=== PATIENT | female | born 1965 | race Caucasian/White ===

== ENCOUNTER 2019-10-22 09:50 | Observation (INO) | payer OTHER, SELFPAY ==
[2019-10-22] VITALS (16 sets, daily range): BP systolic 143–213; BP diastolic 72–138; PULSE 50–74; RESP 14–25; TEMP 36.1–36.7; O2SAT 97–99; BMI 39.6
--- NOTE | ~2019-10-22 | CT_ITS ---
EXAMINATION: CT brain wo con DATE: 10/23/2019 16:24 INDICATION: Seizure. History of metastatic breast cancer, craniotomy TECHNIQUE: Computed tomography (CT) of the head was performed without intravenous contrast. The mA wa s adjusted according to patient size. Iterative reconstruction technique was employed. Exam dose: 60 5.33 mGy-cm total exam DLP. COMPARISON: None FINDINGS: There is a focal area of diminished attenuation in the posteromedial right occipital lobe. A smaller focus of diminished attenuation is noted in each of the occipital lobes. There is a focal area of encephalomalacia subjacent to a craniotomy with bone flap secured by plates and screws in the posterior right parietal area. There is a focal area of encephalomalacia high over the right parietal convexity subjacent to another area of craniotomy with bone flap secured by plate and screws. There is a history of metastatic breast cancer and craniotomy. These focal areas of diminished attenuation may represent areas of past metastatic disease or cerebro vascular infarction; current brain metastatic disease is not confidently excluded without benefit of CT examination with IV contrast or MRI examination with gadolinium. No midline shift or mass effect is evident. No intracranial hemorrhage is identified. There is diminished attenuation of the cerebral white matter, which may be due to chronic small vesse l ischemic changes. Or possibly postoperative radiation change if applicable No subdural or epidural hematoma. No orbital mass lesion Included paranasal sinuses and mastoid air cells are well aerated. No skull fracture or bone destruction is evident. IMPRESSION: 2 right-sided bone flaps due to prior craniotomies, with subjacent encephalomalacia like ly related to surgical excision of reported metastatic disease Occasional areas of diminished attenuation at the craniotomy sites and in the right occipital lobe; m etastatic disease is not confidently excluded on this limited noncontrast examination. Consider repea t CT brain examination with intravenous contrast material or MRI brain examination with gadolinium. Nonspecific diminished attenuation of cerebral white matter, possibly secondary to small vessel ische roxi changes or postradiation change Reviewed, dictated and finalized at [facility]. Reviewed, dictated and finalized at location [facility]. IMPRESSION: 2 right-sided bone flaps due to prior craniotomies, with subjacent encephalomalacia likely related to surgical excision of reported metastatic di sease Occasional areas of diminished attenuation at the craniotomy sites and in the r ight occipital lobe; metastatic disease is not confidently excluded on this marion ited noncontrast examination. Consider repeat CT brain examination with intrave nous contrast material or MRI brain examination with gadolinium. Nonspecific diminished attenuation of cerebral white matter, possibly secondary to small vessel ischemic changes or postradiation change
--- NOTE | ~2019-10-22 | CT_ITS ---
EXAMINATION: CT abdomen pelvis w con DATE: 10/22/2019 10:56 INDICATION: Abdominal pain. Breast cancer with metastases. TECHNIQUE: Computed tomography (CT) of the abdomen and pelvis was performed with 100 mL Omnipaque-350 intravenous contrast. Automated exposure control and iterative reconstruction technique were employe d. The dose-length product was 1166.59 mGy-cm. COMPARISON: 07/23/2016 FINDINGS: Partially visualized is a inferior most aspect of a likely ruptured left breast implant. 5.4 x 5.3 cm mass in the left lower lobe. A couple surgical clips at the base of the left lower lobe which may be related to prior pulmonary wedge resection given suggestion of volume loss with mild elevation of le ft hemidiaphragm. Small left pleural effusion. The majority the prior pulmonary nodules have resolved or significantly decreased in size with a couple <4 mm nodules in the right lower lobe. Heart size i s normal. No pericardial effusion. Wall thickening in the distal esophagus which could be related to esophagitis. Focal hepatic steatosis at the ligamentum teres. Multiple gallstones within the otherwis e normal-appearing gallbladder with no evident wall thickening or pericholecystic inflammatory change to suggest acute cholecystitis. 3 mm hyperintense focus at the tail of the pancreas, unclear whether dystrophic calcification related to prior pancreatitis or hyperenhancing neoplasm which could be eit her benign or malignant. Spleen and bilateral adrenal glands are normal. Again seen is a 2 mm nonobst ructing stone at the lower pole of the right kidney. No significant interval change in angiographic r egions of mild cortical scarring at the both kidneys. Normal appendix. There are couple diverticula a long the sigmoid colon without adjacent inflammatory change to suggest diverticulitis. No abnormal apolonia wel wall thickening or obstruction. Bladder, anteverted uterus and bilateral adnexa are unremarkable. No free intraperitoneal gas or fluid. No pathologically enlarged abdominal or pelvic lymphadenopathy . There is calcified atherosclerosis of the aorta and bilateral iliac arteries. Rectus diastases. Mil d lumbar dextrocurvature. Mild to moderate degenerative skeletal changes in the spine and bilateral h ip and sacroiliac joints. IMPRESSION: 1. Normal appendix. No acute intra-abdominal/pelvic process. 2. Cholelithiasis. 3. 2 mm nonobstructing right renal stone. 4. 5.4 cm mass in the left lower lobe concerning for recurrent metastatic disease with small left ple ural effusion. Reviewed, dictated and finalized at location [facility]. IMPRESSION: 1. Normal appendix. No acute intra-abdominal/pelvic process. 2. Cholelithiasis. 3. 2 mm nonobstructing right renal stone. 4. 5.4 cm mass in the left lower lobe concerning for recurrent metastatic disea se with small left pleural effusion.
--- NOTE | ~2019-10-22 | MR_ITS ---
EXAMINATION: MR brain/brain stem wo/w con EXAM DATE: 10/24/2019 12:31 INDICATION: Seizure, possible brain metastatic disease on CT. TECHNIQUE: Magnetic resonance imaging (MRI) of the brain/brain stem obtained without contrast. Sagit fabiana T1, axial diffusion, gradient echo (T2*), T1, T2, FLAIR sequences obtained. Patient was then inj ected with 20 cc intravenous Multihance contrast. Axial and coronal postcontrast T1 weighted sequence s obtained. Correlation is made to head CT 10/23/2019. FINDINGS: There are surgical changes from right parieto-occipital craniotomy. There are 2 regions of encephalomalacia underlying craniotomy defects, right parietal and occipital lobes. These correlate t o the CT abnormality. There are no areas of restricted diffusion to suggest acute infarction. There is no acute hemorrhage seen on the T2*, a hemosiderin sensitive sequence. No intraparenchymal brain mass lesion. There ar e no areas of abnormal enhancement on the post contrast images. There is rather extensive bilateral white matter signal T2 hyperintensity, could be from global brain radiation or less likely microangi opathy. Correlate with history. There is prominence of the sulci and ventricles related to cerebral atrophy. There are no extra-axial collections. Flow voids are seen in the cerebral arteries on the T2-weighted sequences consistent with their expected patency. The orbits are unremarkable. Soft ti ssue is unremarkable. IMPRESSION: 1. No evidence of intracranial metastatic disease. 2. White matter hyperintensity most consistent with brain radiation treatment. 3. Surgical changes. Reviewed, dictated and finalized at location [facility].
--- NOTE | ~2019-10-22 | XR_ITS ---
EXAMINATION: XR chest 1V portable EXAM DATE: 10/22/2019 10:40 INDICATION: Karla catheter. TECHNIQUE: Portable AP frontal chest x-ray was obtained. Comparison is made to prior examination from 10/23/2008. FINDINGS: There is a right-sided portacatheter with intact line. There is segmental left lower lobe c onsolidation, could be pneumonia or atelectasis. Please correlate with the CT scan which has been ord ered but not performed. Mild cardiomegaly and pulmonary vascular congestion. Probable small pleural e ffusions. No pneumothorax. There are mild bony degenerative changes. IMPRESSION: 1. Left lower lobe segmental consolidation. Reviewed, dictated and finalized at location [facility].
--- NOTE | 2019-10-22 09:59 | ECG_ITS ---
Measurements Intervals Lyle Rate: 52 P: 45 MT: 140 QRS: 20 QRSD: 113 T: -1 QT: 485 QTc: 455 Interpretive Statements SINUS BRADYCARDIA INTRAVENTRICULAR CONDUCTION DELAY VOLTAGE CRITERIA FOR LVH LATERAL INFARCT, AGE INDETERMINATE BORDERLINE ST-T WAVE ABNORMALITY- ANTEROLAT/INF LEADS ABNORMAL ECG Electronically Signed On 10-22-2019 13:48:48 CDT by Corbin Mata D.O.
--- NOTE | 2019-10-22 10:11 | ED.ABDPAIN ---
HPI - Abdominal Pain General Chief Complaint: Abdominal Pain Stated Complaint: ABD PAIN/VOMITING Time Seen by Provider: 10/22/19 10:05 Source: patient Mode of arrival: ambulatory Limitations: no limitations History of Present Illness HPI narrative: A 54 y/o female pt presents to the ED, with c/o diffuse ABD pain that radiates to her back and N/V x 1 day. Pt states her ABD pain is worsening and notes emesis x 10 yesterday, and some loose stools, but denies N/V/D today. She denies having any similar pain to this in the past and denies having any hx of ABD surgeries. Pt denies fever, chills, ROSAS, CP or SOB. Pt notes a PMHx of stage 4 triple negative breast CA x 15 years with metastasis to the lung, brain, lymph nodes, chest and bones. She notes that she was supposed to resume her chemotherapy today, but was unable to d/t her condition today. Pt states that she has an appointment with her oncologist Dr. Parrish at [facility] next week. Her PCP is Dr. Stacey Stout. She notes allergies to Mucinex, Sulfa drugs, and Opioids. MD elicited complaint: abdominal pain Pertinent past history: other (CA) Onset (ago): day(s) (1) Pain Consistency: other (worsening) Location: diffuse Radiation: back Associated symptoms: nausea, vomiting and other (loose stools, diffuse ABD pain) Related Data Allergies Allergy/AdvReac Type Severity Reaction Status Date / Time butorphanol Allergy Severe DIAPHRAMATIC Verified 07/23/16 17:41 SPASM codeine Allergy Severe ITCHING, Verified 07/23/16 17:41 NAUSEA AND VOMITING, SOB ibuprofen Allergy Severe BLOOD IN Verified 07/23/16 17:41 STOOL morphine Allergy Severe RESPIRATORY Verified 07/23/16 17:41 DISTRESS,ITCHEY meperidine Allergy Intermediate COMBATIVE Verified 07/23/16 17:41 Sulfa (Sulfonamide Allergy Mild MUSCLE PAIN Verified 07/23/16 17:41 Antibiotics) alcohol Allergy Unknown MUSCLE PAIN Verified 07/23/16 17:41 aspirin Allergy Unknown PARENTS Verified 07/23/16 17:41 TOLD NOT TO GIVE CHILD PAPER TAPE Allergy Severe BLISTERS--SEVERE Uncoded 09/25/08 10:39 SKIN REACTION YELLOW CHEESE, SIFUENTES,CLAMS Allergy Severe CHEESE---MUSCLE Uncoded 09/25/08 10:39 BURCIAGA NO ARTIFICIAL SWEETNERS Allergy Unknown Uncoded 07/23/16 17:41 Review of Systems Review of Systems: All systems reviewed & are unremarkable except as noted in HPI and below Constitutional: Constitutional: Denies chills, Denies fever(s) and Denies headache(s) Cardiovascular: Cardiovascular: Denies chest pain Respiratory: Respiratory: Denies dyspnea Gastrointestinal: Gastrointestinal: Reports abdominal pain (diffuse), Denies diarrhea, Reports loose stools, Reports nausea (subsided) and Reports vomiting (x 10 yesterday) Musculoskeletal: Musculoskeletal: Reports back pain (radiating from ABD) [facility] Past Medical History Medical History (Updated 10/22/19 @ 12:14 by Jimenez Ricketts MD) Arthritis Breast cancer, left Bronchitis Hypertension Kidney stones Surgical History Surgical History (Updated 10/22/19 @ 11:50 by [employer]ury [email or web address]) H/O left mastectomy History of section History of dilation and curettage x2 History of left breast biopsy History of tonsillectomy History of uterine suspension procedure Social History Social History (Updated 10/22/19 @ 11:50 by [employer]ury [email or web address]) Smoking status: Smoker, status unknown Gender identity (if verbalized by the patient): Female Exam Narrative: Exam Narrative: General appearance: Well-developed, well-nourished Skin: Normal color Head: Normocephalic, nontraumatic Eyes: Clear conjunctiva ENT: Oropharynx normal, ears normal, nose normal Neck: Supple, nontender Chest and respiratory: Airway patent, no respiratory distress, no accessory muscle use Heart: Regular rate/rhythm Abdomen: Soft, diffuse mild tenderness, no guarding or rebound, hyperactive bowel sounds Vascular: Normal peripheral pulses, normal capillary refill.
[2019-10-22 10:52] LABS: Estimated Glomerular Filt Rate 47
[2019-10-22 10:55] LABS: Basophils Absolute Auto 0.1 K/mm3 (0.0-0.1); Basophils Percent Auto 0.6 % (0.2-1.2); Eosinophils Absolute Auto 0.2 K/mm3 (0-0.3); Eosinophils Percent Auto 2.4 % (0-4.4); Hematocrit 38.9 % (37.0-47.0); Immature Granulocyte Absolute 0.03 K/mm3 (0.00-0.031); Immature Granulocyte Percent A 0.3 % (0-0.5); Lymphocytes Absolute Auto 0.74 K/mm3 (0.9-3.2); Lymphocytes Percent Auto 8.2 % (18.3-44.2); Mean Corpuscular HGB Conc 33.4 g/dl (32-36); Mean Corpuscular Hemoglobin 31.8 pg (26-34); Mean Corpuscular Volume 95.1 fl (80-100); Mean Platelet Volume 10.5 fl (7.4-10.4); Monocytes Absolute Auto 0.6 K/mm3 (0.1-0.6); Monocytes Percent Auto 6.5 % (2.6-8.5); Neutrophils Absolute Auto 7.4 K/mm3 (1.3-6.7); Platelet Count Result 209 k/mm3 (150-375); Red Blood Count 4.09 M/mm3 (4.2-5.4); Red Cell Distribution Width 17.4 % (11.5-14.5)
[2019-10-22 11:05] LABS: Lactic Acid 1.5 mmol/L (0.7-2.1)
[2019-10-22 11:06] LABS: Alanine Aminotransferase 15 U/L (4-35); Albumin Level 3.8 g/dL (3.5-5.1); Alkaline Phosphatase 104 U/L (38-126); Aspartate Amino Transferase 21 U/L (14-36); Bilirubin,Total 0.7 mg/dL (0.2-1.3); Blood Urea Nitrogen 16 mg/dL (7-17); Calcium 9.1 mg/dL (8.4-10.2); Carbon Dioxide 28 mmol/L (22-30); Chloride 103 mmol/L (98-107); Estimated Glomerular Filt Rate 52; Glucose 120 mg/dL (65-105); Lipase 230 U/L (23-300); Potassium 3.9 mmol/L (3.4-5.0); Sodium 137 mmol/L (137-145)
[2019-10-22 11:36] LABS: Add Urine Microscopic? YES; Appearance Urine Clear (Clear); Bilirubin Urine Negative (Negative); Blood Urine Negative (Negative); Color Urine Straw (Yellow); Glucose Urine UA Negative (Negative); Ketones Urine Negative (Negative); Leukocyte Esterase Ur 2+ LEU/UL (Negative); Mucus Urine Rare /lpf; Nitrate Urine Negative (Negative); Protein Urine 1+ mg/dL (Negative); Specific Grav Ur 1.021 (1.001-1.035); Squamous Epithelial Cell Urine Rare /hpf (Few); Transitional Epi Cells Urine Rare /hpf (None Seen); Urobilinogen Urine Negative mg/dL (<2.0); WBC Urine 21-30 /hpf
[2019-10-22] MEDS: SODIUM CHLORIDE 0.9% IV 1,000 ML 999 ML IV CONT (12:10)
[2019-10-22] MEDS: METOCLOPRAMIDE HCL INJ 10 MG/2 ML VIAL IV PUSH (12:11)
[2019-10-22] MEDS: KETOROLAC 30 MG/ML VIAL (*BKC) IV PUSH (12:43)
[2019-10-22] MEDS: levETIRAcetam 1000MG/NACL100ML 1,000 MG/100 ML BAG 400 MG IVPB ×2 (13:04→20:06)
[2019-10-22] MEDS: levETIRAcetam 500MG/NACL 100ML 500 MG/100 ML BAG 400 MG IVPB ×2 (13:08→20:49)
--- NOTE | 2019-10-22 13:40 | ADMGEN ---
This patient, Stacy Domínguez, was admitted to Medical Room 344-01. Patient/family oriented to hospital policies and general routines including ID bracelet, bed and alarms, visiting hours, pain management, procedures, bathroom and other care routines, personal items, smoking policy, room service/diet, and visiting hours. Valuables list has been completed. Information on how to activate the Rapid Response Team has been discussed. Patient/Family are encouraged to report perceived risks to care and to ask questions if they do not understand what they are told or what they should do.
[2019-10-22] MEDS: SODIUM CHLORIDE 0.9% IV 1,000 ML 125 ML IV CONT ×2 (15:01→23:21)
--- NOTE | 2019-10-22 15:12 | PM.IMHP ---
H&P: HPI History of Present Illness Chief complaint: abdominal pain/urinary tract infection/vomiting/br Narrative: Stacy Domínguez is a 54 year old female Who has a history of breast cancer that has metastasized to several areas. The patient typically has chemotherapy 2 weeks and then off a week. She was off a chemo this week due to the ferro virus. It was too risky for her to get chemotherapy at this time. The patient has not had a previous history of any gallstones or kidney stones. The patient has been having diffuse abdominal pain that radiates to her back with nausea and vomiting for 1 day. The patient has had brain tumors in the past and had brain surgery with a history of stroke and seizures. She has not been able to keep down her seizure medicine. The patient stated that she has been vomiting bile. No complaints any chest discomfort. Patient has multiple drug allergies but was able to tolerate Toradol in the emergency room. She does not typically have high blood pressure but it was elevated today due to the pain. Her blood pressure was 183/103 and after the pain medication was 150/86. CT of the abdomen was read by radiology as normal appendix. No acute intra-abdominal / pelvis process. Cholelithiasis. 2 mm nonobstructing right renal stone. 5.4 cm mass in the left lower lobe concerning for recurrent metastatic disease with small left pleural effusion. Patient has symptoms of frequent urination but no burning. Patient was found to have UTI and was started on Rocephin. Blood and urine cultures are pending. Patient was given Reglan IV and IV fluids as well as Benadryl and Ativan in the emergency room. She was also started on IV fluids. Date of service 10/22/2019 Review of Systems Review of Systems: Narrative: the patient denies any fever but complains of having chills. She also has lower back pain. The nausea has pretty much subsided since she was medicated in the emergency room. Patient is typically wheelchair-bound when she is out of the house otherwise she is bed bound because her will to [employer]. All systems reviewed & are unremarkable except as noted in HPI and below Constitutional: Constitutional: Reports as per HPI and Reports no additional constitutional complaints Eyes: Eyes: Reports as per HPI and Reports no additional eye complaints ENT: Reports system reviewed and no additional complaints, except as documented and Reports Normal hearing present Cardiovascular: Cardiovascular: Reports no additional cardiovascular complaints Respiratory: Respiratory: Reports no additional respiratory complaints and Reports no additional respiratory complaints Gastrointestinal: Gastrointestinal: Reports as per HPI and Reports no additional gastrointestinal complaints Musculoskeletal: Musculoskeletal: Reports no additional musculoskeletal complaints Integumentary/Breasts: Skin/Breast: Reports system reviewed and no additional complaints, except as docu and Reports as per HPI Neurologic: Reports system reviewed and no additional complaints, except as documented, Reports as per HPI and Reports Normal hearing present Psychiatric: Psychiatric: Reports no additional psychiatric complaints and Reports as per HPI Endocrine: Endocrine: Reports no additional endocrine complaints Hematologic/Lymphatic: Hematologic/Lymphatic: Reports no additional hematologic/lymphatic complaints Allergic/Immunologic: Allergic/Immunologic: Reports no additional allergic/immunologic complaints [facility] Past Medical History Medical History (Updated 10/22/19 @ 15:23 by Michaelle Iverson NP) Arthritis Brain tumor multiple tumors were removed. Breast cancer, left Typically she has chemotherapy for 2 weeks and then 1 week off her last chemo treatment was last Monday. She was due for chemo this week however her oncologist recommended that she hold off on chemo due to the ferro virus outbreak. Metastasize to multiple areas on her spine lungs and brain B
[2019-10-22] MEDS: PANTOPRAZOLE SODIUM IV 40 MG VIAL IV PUSH (20:00)
[2019-10-22] MEDS: KETOROLAC 15 MG/ML VIAL (*BKC) IV PUSH (20:01)
[2019-10-22] MEDS: ALBUTEROL SULFATE (*SP) AEROSOL 1 PUFF 2 PUFF INHALATION (20:26)
[2019-10-23] VITALS: BP 147/86; PULSE 52; RESP 16; TEMP 36.2; O2SAT 100
[2019-10-23 04:15] VITALS: BP 149/95; PULSE 49; RESP 16; TEMP 36.1; O2SAT 92
[2019-10-23 05:20] LABS: Basophils Percent Auto 0.5 % (0.2-1.2); Eosinophils Absolute Auto 0.3 K/mm3 (0-0.3); Eosinophils Percent Auto 4.7 % (0-4.4); Hematocrit 33.4 % (37.0-47.0); Hemoglobin 11.1 g/dL (12.0-15.0); Immature Granulocyte Absolute 0.01 K/mm3 (0.00-0.031); Immature Granulocyte Percent A 0.2 % (0-0.5); Lymphocytes Absolute Auto 1.01 K/mm3 (0.9-3.2); Mean Corpuscular HGB Conc 33.2 g/dl (32-36); Mean Corpuscular Hemoglobin 31.9 pg (26-34); Mean Platelet Volume 9.8 fl (7.4-10.4); Monocytes Absolute Auto 0.7 K/mm3 (0.1-0.6); Monocytes Percent Auto 11.3 % (2.6-8.5); Neutrophils Absolute Auto 3.9 K/mm3 (1.3-6.7); Neutrophils Percent Auto 66.3 % (45.5-73.1); Platelet Count Result 193 k/mm3 (150-375); Red Blood Count 3.48 M/mm3 (4.2-5.4); Red Cell Distribution Width 17.5 % (11.5-14.5); White Blood Count 5.9 K/mm3 (4.5-10.0)
[2019-10-23 05:47] LABS: Albumin Level 3.1 g/dL (3.5-5.1); Alkaline Phosphatase 79 U/L (38-126); Aspartate Amino Transferase 18 U/L (14-36); Bilirubin,Total 0.5 mg/dL (0.2-1.3); Blood Urea Nitrogen 12 mg/dL (7-17); Calcium 8.3 mg/dL (8.4-10.2); Carbon Dioxide 27 mmol/L (22-30); Estimated CRCL calculation 60 ml/min; Estimated Glomerular Filt Rate 52; Glucose 91 mg/dL (65-105)
[2019-10-23 06:15] LABS: Alanine Aminotransferase 13 U/L (4-35); Chloride 110 mmol/L (98-107); Magnesium 1.9 mg/dL (1.6-2.3); Potassium 3.5 mmol/L (3.4-5.0); Sodium 141 mmol/L (137-145)
[2019-10-23] MEDS: SODIUM CHLORIDE 0.9% IV 1,000 ML 125 ML IV CONT (07:31)
[2019-10-23 07:43] LABS: Free T4 Free Thyroxine Reflex 0.98 ng/dL (0.78-2.19)
[2019-10-23 08:36] LABS: Total Triiodothyronine (T3) 1.21 NG/ML (0.97-1.69)
[2019-10-23] MEDS: ALBUTEROL SULFATE (*SP) AEROSOL 1 PUFF 2 PUFF INHALATION ×2 (09:13→20:27)
[2019-10-23] MEDS: levETIRAcetam 1000MG/NACL100ML 1,000 MG/100 ML BAG 400 MG IVPB ×2 (09:18→20:38)
[2019-10-23] MEDS: PANTOPRAZOLE SODIUM IV 40 MG VIAL IV PUSH ×2 (09:19→20:40)
[2019-10-23 09:35] VITALS: PULSE 72; RESP 16; O2SAT 98
[2019-10-23] MEDS: levETIRAcetam 500MG/NACL 100ML 500 MG/100 ML BAG 400 MG IVPB ×3 (09:47→21:13)
--- NOTE | 2019-10-23 10:13 | PM.IMPN ---
Progress Note: A&P Assessment and Plan (1) Urinary tract infection: Qualifiers: Hematuria presence: without hematuria Urinary tract infection type: site unspecified Qualified Code(s): N39.0 - Urinary tract infection, site not specified <Olga Lidia Genao PA-C - Last Filed: 10/23/19 14:20> Code(s): N39.0 - Urinary tract infection, site not specified <Olga Lidia Genao PA-C - Last Filed: 10/23/19 14:20> Status: Acute <JESSICA Michel-C - Last Filed: 10/23/19 14:20> Assessment and Plan: Patient was having some frequent urination is lung is darkened urine. Denies any dysuria. Urine culture showed leukocyte esterase 2+, wbc's 21- 30. The patient was started on IV ceftriaxone in the emergency room. We are pending urine culture at this time. CT did not offer any evidence of pyelonephritis. Continue monitoring patient's symptoms and administer IV antibiotics until final culture returned. <Olga Lidia Genao PA-C - Last Filed: 10/23/19 14:20> (2) Abdominal pain: Qualifiers: Abdominal location: generalized Qualified Code(s): R10.84 - Generalized abdominal pain <Olga Lidia Genao JONY - Last Filed: 10/23/19 14:20> Code(s): R10.9 - Unspecified abdominal pain <JESSICA Michel-C - Last Filed: 10/23/19 14:20> Status: Acute <Olga Lidia Genao PA-C - Last Filed: 10/23/19 14:20> Assessment and Plan: Patient with diffuse abdominal pain prior to arrival. Now she is just having some epigastric discomfort in intermittent right upper quadrant pain. CT shows no acute abnormality for cause of her discomfort. Her pain was most likely secondary to multiple vomiting episodes and no related to some gastritis and esophagitis from vomiting. Continue with PPI. Continue with IV Toradol p.r.n.. Continue monitoring. <Olga Lidia Sierra JONY Genao - Last Filed: 10/23/19 14:20> (3) Vomiting: Qualifiers: Nausea presence: with nausea Vomiting Intractability: unspecified Vomiting type: unspecified Qualified Code(s): R11.2 - Nausea with vomiting, unspecified <Olga Lidia NavarroYana Genao PA-C - Last Filed: 10/23/19 14:20> Code(s): R11.10 - Vomiting, unspecified <Olga Lidia Rigo Genao PA-C - Last Filed: 10/23/19 14:20> Status: Acute <Olga Lidia Genao PA-C - Last Filed: 10/23/19 14:20> Assessment and Plan: Multiple episodes of nausea and vomiting prior to arrival along with a diffuse abdominal pain. She was found to be slightly dehydrated and started on IV fluids and IV antiemetics, Zofran and Reglan. She is feeling much better at this time with some decreased appetite and intermittent nausea. No more vomiting at this time. Continue monitoring patient's symptoms and give medications as needed. <Olga Lidiatia Genao PA-C - Last Filed: 10/23/19 14:20> (4) Seizure disorder: Code(s): G40.909 - Epilepsy, unspecified, not intractable, without status epilepticus <Olga Lidia Genao PA-C - Last Filed: 10/23/19 14:20> Status: Chronic <Olga Lidia Genao PA-C - Last Filed: 10/23/19 14:20> Assessment and Plan: Patient was unable to keep down her Keppra Orally She is receiving IV Keppra at this time. When she is tolerating her diet better we can switch her back to her oral medications. <Olga Lidia Genao PA-C - Last Filed: 10/23/19 14:20> (5) Cholelithiasis: Code(s): K80.20 - Calculus of gallbladder without cholecystitis without obstruction <JONY Michel Last Filed: 10/23/19 14:20> Status: Acute <JONY Michel Last Filed: 10/23/19 14:20> Assessment and Plan: I discussed this with the patient she does not have any righ
[2019-10-23] MEDS: CENTRAL LINE FLUSH 10 ML IV PUSH ×2 (13:27→20:45)
[2019-10-23] MEDS: hydrALAZINE HCL 20 MG/ML VIAL 10 MG IV PUSH (14:40)
[2019-10-23 14:46] VITALS: BP 170/118; PULSE 86; RESP 18; TEMP 37; O2SAT 97
[2019-10-23] MEDS: LORAZEPAM INJ 2 MG/ML VIAL IV PUSH (15:48)
[2019-10-23] MEDS: SODIUM CHLORIDE 0.9% IV 1,000 ML 70 ML IV CONT (18:47)
[2019-10-23] MEDS: DEXAMETHASONE SOD PHOS INJ 4 MG/ML VIAL IV PUSH (18:48)
[2019-10-23 19:23] VITALS: BP 147/98; PULSE 66; RESP 18; TEMP 36.6; O2SAT 96
[2019-10-24] VITALS: BP 143/94; PULSE 76; RESP 15; TEMP 36.1; O2SAT 95
[2019-10-24 05:35] VITALS: BP 135/91; PULSE 68; RESP 16; TEMP 36.3; O2SAT 97
[2019-10-24 05:45] LABS: Blood Urea Nitrogen 13 mg/dL (7-17); Calcium 9.4 mg/dL (8.4-10.2); Carbon Dioxide 26 mmol/L (22-30); Chloride 109 mmol/L (98-107); Estimated CRCL calculation 60 ml/min; Estimated Glomerular Filt Rate 52; Glucose 120 mg/dL (65-105); Magnesium 1.9 mg/dL (1.6-2.3); Sodium 138 mmol/L (137-145)
[2019-10-24 05:57] LABS: Hematocrit 36.7 % (37.0-47.0); Hemoglobin 12.3 g/dL (12.0-15.0); Mean Corpuscular HGB Conc 33.5 g/dl (32-36); Mean Corpuscular Hemoglobin 31.5 pg (26-34); Mean Corpuscular Volume 94.1 fl (80-100); Mean Platelet Volume 10.2 fl (7.4-10.4); Platelet Count Result 233 k/mm3 (150-375); Red Cell Distribution Width 17.2 % (11.5-14.5); White Blood Count 6.7 K/mm3 (4.5-10.0)
--- NOTE | 2019-10-24 08:25 | PM.IMPN ---
Progress Note: A&P Assessment and Plan (1) Seizure disorder: Code(s): G40.909 - Epilepsy, unspecified, not intractable, without status epilepticus Status: Chronic Assessment and Plan: Patient was unable to keep down her Keppra Orally prior to arrival. She is receiving IV Keppra since arrival to the hospital. She had a seizure on 10/23/2019 around 4:00 p.m. which occurred after she had gotten off the bed caruso. The whole episode lasted around 20 seconds but she continued to have some tremors to her right arm and right leg but she was answering questions appropriately. She was given 2 mg of IV Ativan with improvement of her symptoms. Stat CT scan of her head after her seizure showed 2 right-sided bone flaps due to prior craniotomies, with subjacent encephalomalacia likely related to surgical excision of reported metastatic disease. Occasional areas of diminished attenuation at the craniotomy sites and in the right occipital lobe; metastatic disease is not confidently excluded on this limited noncontrast examination. Consider repeat CT brain examination with intravenous contrast material or MRI brain examination with gadolinium. We had ordered an MRI of her brain to further rule out any acute brain masses. We are pending authorization from radiology to ensure she can have this prior to discharge due to her prior history of surgeries. The patient states she had MRI of her brain 1 week ago and she is waiting to follow-up with her oncologist with the results. She states she gets PET scans and MRIs every 3 months. Will continue monitoring the patient over 24 hours after she had her seizure to ensure she does not have another. We are also still advancing her diet and will change her back to her oral medications once stable. (2) Urinary tract infection: Qualifiers: Hematuria presence: without hematuria Urinary tract infection type: site unspecified Qualified Code(s): N39.0 - Urinary tract infection, site not specified Code(s): N39.0 - Urinary tract infection, site not specified Status: Acute Assessment and Plan: Patient was having some frequent urination is lung is darkened urine. Denies any dysuria. Urine culture showed leukocyte esterase 2+, wbc's 21- 30. The patient was started on IV ceftriaxone in the emergency room. CT did not offer any evidence of pyelonephritis. Urine culture showed no infection. IV ceftriaxone was discontinued. (3) Abdominal pain: Qualifiers: Abdominal location: generalized Qualified Code(s): R10.84 - Generalized abdominal pain Code(s): R10.9 - Unspecified abdominal pain Status: Acute Assessment and Plan: Patient with diffuse abdominal pain prior to arrival. Now she is just having some epigastric discomfort CT shows no acute abnormality for cause of her discomfort. Her pain was most likely secondary to multiple vomiting episodes and no related to some gastritis and esophagitis from vomiting. Continue with PPI. Continue with IV Toradol p.r.n.. Continue monitoring. (4) Vomiting: Qualifiers: Nausea presence: with nausea Vomiting Intractability: unspecified Vomiting type: unspecified Qualified Code(s): R11.2 - Nausea with vomiting, unspecified Code(s): R11.10 - Vomiting, unspecified Status: Acute Assessment and Plan: Multiple episodes of nausea and vomiting prior to arrival along with a diffuse abdominal pain. She was found to be slightly dehydrated and started on IV fluids and IV antiemetics, Zofran and Reglan. She is feeling much better at this time with no more nausea or vomiting. Continue monitoring patient's symptoms and give medications as needed. (5) Cholelithiasis: Code(s): K80.20 - Calculus of gallbladder wi
[2019-10-24 08:50] VITALS: BP 140/84; PULSE 69; RESP 16; TEMP 36.3; O2SAT 96
[2019-10-24] MEDS: levETIRAcetam 1000MG/NACL100ML 1,000 MG/100 ML BAG 400 MG IVPB (09:09)
[2019-10-24] MEDS: PANTOPRAZOLE SODIUM IV 40 MG VIAL IV PUSH (09:12)
[2019-10-24] MEDS: KETOROLAC 15 MG/ML VIAL (*BKC) IV PUSH (09:18)
[2019-10-24 09:32] VITALS: PULSE 72; RESP 16; O2SAT 96
[2019-10-24] MEDS: levETIRAcetam 500MG/NACL 100ML 500 MG/100 ML BAG 400 MG IVPB (09:33)
--- NOTE | 2019-10-24 11:30 | PC.NURSE ---
To MRI via stretcher. Family at bedside.
[2019-10-24 13:03] VITALS: BP 131/95; PULSE 57; RESP 18; TEMP 36.3; O2SAT 97
[2019-10-24] MEDS: CENTRAL LINE FLUSH 10 ML IV PUSH (13:55)
--- NOTE | 2019-10-24 14:02 | PCOTNOTE ---
Attempted to see patient twice this date, however patient refused both times. First attempt, patient declined due to testing. Encouraged patient to participate in therapy until techs were officially ready to take patient for testing, however patient declined. Second attempt, patient declined stating, I think I ate too much, because I'm in a food coma. I'm tired. Upon entering room, Pt's stated, She's napping. Pt was awake supine in bed at this time. stated he was leaving for the day and patient asked, Well aren't you gonna help me take a bath before you leave? replied, Honey, I'll help you take a bath in the morning when I get back. Pt said, Well, I really wanted to take a bath. Offered to set up and assist patient with bathing, and patient declined stating, No, because he does a really good job. He really scratchies my back. And he will give me a shower. Offered to get patient into shower using a seat. Pt refused stating, This was my first time eating solid food, and I think I ate too much, because I'm in a food coma. Nursing and physical therapy present at this time encouraging patient to participate, however patient stated she was too tired and wanted to take a nap. Pt not seen for this reason.
--- NOTE | 2019-10-24 14:30 | PM.DS ---
DS: Diagnosis Admitting Diagnosis Admitting Diagnosis: Urinary tract infection, site not specified Discharge Diagnosis (1) Seizure disorder: Code(s): G40.909 - Epilepsy, unspecified, not intractable, without status epilepticus Status: Chronic Assessment and Plan: Patient was unable to keep down her Keppra Orally prior to arrival. She is receiving IV Keppra since arrival to the hospital. She had a seizure on 10/23/2019 around 4:00 p.m. which occurred after she had gotten off the bed caruso. The whole episode lasted around 20 seconds but she continued to have some tremors to her right arm and right leg but she was answering questions appropriately. She was given 2 mg of IV Ativan with improvement of her symptoms. Stat CT scan of her head after her seizure showed 2 right-sided bone flaps due to prior craniotomies, with subjacent encephalomalacia likely related to surgical excision of reported metastatic disease. Occasional areas of diminished attenuation at the craniotomy sites and in the right occipital lobe; metastatic disease is not confidently excluded on this limited noncontrast examination. Consider repeat CT brain examination with intravenous contrast material or MRI brain examination with gadolinium. MRI Brain showed No evidence of intracranial metastatic disease. White matter hyperintensity most consistent with brain radiation treatment. Surgical changes. The patient reports feeling much better today. She would really like to be discharged home at this time and states she will continue taking her medications and she has a seizure dog at home that helps her. Her is also at home and can help her if necessary. Informed the patient she has a follow-up with her neurologist within the next few weeks as an outpatient for further evaluation and to see if she needs any adjustments to her medications. Told her to return to the emergency department she has any more seizure activity. (2) Urinary tract infection: Qualifiers: Hematuria presence: without hematuria Urinary tract infection type: site unspecified Qualified Code(s): N39.0 - Urinary tract infection, site not specified Code(s): N39.0 - Urinary tract infection, site not specified Status: Acute Assessment and Plan: Patient was having some frequent urination is lung is darkened urine. Denies any dysuria. Urine culture showed leukocyte esterase 2+, wbc's 21- 30. The patient was started on IV ceftriaxone in the emergency room. CT did not offer any evidence of pyelonephritis. Urine culture showed no infection. IV ceftriaxone was discontinued. (3) Abdominal pain: Qualifiers: Abdominal location: generalized Qualified Code(s): R10.84 - Generalized abdominal pain Code(s): R10.9 - Unspecified abdominal pain Status: Acute Assessment and Plan: Patient with diffuse abdominal pain prior to arrival. Now she is just having some epigastric discomfort CT shows no acute abnormality for cause of her discomfort. Her pain was most likely secondary to multiple vomiting episodes and no related to some gastritis and esophagitis from vomiting. Continue with PPI. Continue with IV Toradol p.r.n.. Continue monitoring. (4) Vomiting: Qualifiers: Nausea presence: with nausea Vomiting Intractability: unspecified Vomiting type: unspecified Qualified Code(s): R11.2 - Nausea with vomiting, unspecified Code(s): R11.10 - Vomiting, unspecified Status: Acute Assessment and Plan: Multiple episodes of nausea and vomiting prior to arrival along with a diffuse abdominal pain. She was found to be slightly dehydrated and started on IV fluids and IV antiemetics, Zofran and Reglan. She is feeling much better at this time with no more nausea or vomiting. Continue monitori
[2019-10-24] MEDS: HEPARIN SOD FLUSH 500 UNITS/5 ML SYRINGE IV PUSH (15:21)
--- NOTE | 2019-10-28 13:22 | PC.NURSE ---
Discharge call back placed. Patient states I can't stop peeing, like a stone is passing and keeping my urethra open or something . Patient states this is new onset after discharge. RN instructed patient to follow up with primary provider and if unable to do so to follow up at an urgent care. Patient states overall, I feel better, I just can't stop peeing .
--- NOTE | 2019-10-29 10:30 | PC.NURSE ---
Blood cx is negative.
== END 2019-10-24 16:11 | disposition home or self-care (01) ==
LOC: ANHED 12:18 → ANH3MED 14:01
PROVIDERS: Nurse Practitioner; Admitting Provider Internal Medicine; Emergency Provider Emergency Medicine; PCP Family Medicine; Visit Provider Physician Assistant
DX: G40.909 Epilepsy, unspecified, not intractable, without status epilepticus (principal); R35.0 Frequency of micturition; R10.84 Generalized abdominal pain; E86.0 Dehydration; R11.2 Nausea with vomiting, unspecified; K80.20 Calculus of gallbladder without cholecystitis without obstruction; C50.912 Malignant neoplasm of unspecified site of left female breast; C77.9 Secondary and unspecified malignant neoplasm of lymph node, unspecified; C78.00 Secondary malignant neoplasm of unspecified lung; C79.51 Secondary malignant neoplasm of bone; C79.89 Secondary malignant neoplasm of other specified sites; H90.2 Conductive hearing loss, unspecified; I10 Essential (primary) hypertension; Z85.841 Personal history of malignant neoplasm of brain; Z86.73 Personal history of transient ischemic attack (TIA), and cerebral infarction without residual deficits; Z87.891 Personal history of nicotine dependence
CPT/HCPCS: 36415; 70450; 70553; 71045; 74177; 80048; 80053; 81001; 83605; 83690; 83735; 84439; 84443; 84480; 85025; 85027; 87040; 87086; 93005; 94640; 96361; 96365; 96367; 96375; 96376; 97110; 97161; 97165; 97530; 99285; A9270; A9577; C9113; G0378; G0379; J0360; J0696; J1100; J1885; J1953; J2060; J2765; J7030; Q9967

== ENCOUNTER 2020-05-14 18:00 | Observation (INO) | payer OTHER, SELFPAY ==
--- NOTE | ~2020-05-14 | XR_ITS ---
EXAMINATION: XR chest 1V portable INDICATION: Shortness of breath, history of metastatic breast cancer TECHNIQUE: Portable AP chest at 2126 hours COMPARISON: 10/22/2019 FINDINGS: There is an approximately 6.5 cm left lower lobe mass without significant change. A right i nternal jugular Port-A-Cath ends with its tip in the distal superior vena cava. No acute airspace opa cities are identified. There is no pleural effusion or pneumothorax. IMPRESSION: 1. No acute cardiopulmonary abnormality. 2. Stable left lower lobe mass, consistent with metastatic disease. Reviewed, dictated and finalized at location A.
--- NOTE | ~2020-05-14 | CT_ITS ---
EXAMINATION: CTA chest PE abdomen pel DATE: 05/14/2020 23:01 INDICATION: Shortness of breath and abdominal pain, history of metastatic breast cancer TECHNIQUE: Computed tomography angiography (CTA) of the chest was performed with 100 mL Omnipaque-350 intravenous contrast timed to evaluate the pulmonary arteries. Subsequent postcontrast images of the abdomen and pelvis are obtained. Coronal maximum intensity projection 3D-reconstructions were create d by the technologist. The dose-length product (DLP) was 2283.60 mGy-cm. Automated exposure control a nd iterative reconstruction technique were employed. COMPARISON: 10/22/2019 FINDINGS: CTA CHEST: There is a 5.4 x 5.2 cm mass of the left lower lobe with air bronchograms. A 1.7 x 1.2 cm nodule is present in the left lung apex. There are subpleural reticular opacities anteriorly in the l eft upper lobe, likely related to radiation change. A 6 mm nodule is present in the right lower lobe on image 93. There is left hilar lymphadenopathy. There is no aneurysm or dissection of the thoracic aorta. The pulmonary arteries are well-opacified. No pulmonary embolism is identified. The heart size is normal. There are changes of left mastectomy with implant reconstruction. The breast implant is r uptured. A right internal jugular Port-A-Cath ends with its tip in the distal superior vena cava. The re is a sclerotic lesion of the sternum with pathologic fracture. There is a sclerotic metastasis of the left anterior second rib. A small left pleural effusion is present. ABDOMEN/PELVIS CT: Stones are present in the nondistended gallbladder. The liver, spleen, pancreas, a nd left adrenal gland are normal. A 1.7 x 1.1 cm mass of the right adrenal gland was not definitely i dentified on the prior examination. There is atrophy of the otherwise unremarkable kidneys. No pathol ogically enlarged abdominal or pelvic lymph nodes are identified. There is no free intraperitoneal ga s or evidence of bowel obstruction. There is calcified atherosclerosis of the aorta and many of the o ther arteries. There is mild lumbar spondylosis. IMPRESSION: 1. No pulmonary embolism or abnormality of the thoracic aorta. 2. 5.4 cm mass of the left lower lobe consistent with metastatic disease. A 1.7 cm nodule of the left lung apex is also concerning for metastatic disease. 3. Metastatic lesion of the sternum with pathologic fracture. 4. Sclerotic metastasis of the left anterior second rib. 5. New right adrenal mass, concerning for metastatic disease. Reviewed, dictated and finalized at location A.
--- NOTE | ~2020-05-14 | CT_ITS ---
EXAMINATION: CT brain wo con INDICATION: Weakness, history of metastatic breast cancer COMPARISON: 10/23/2019 TECHNIQUE: Standard unenhanced head CT. The dose-length product (DLP) was 605.33 mGy-cm. The mA was a djusted according to patient size. Iterative reconstruction technique was employed. FINDINGS: There is no intracranial hemorrhage, acute infarction, or abnormal mass lesion. There is en cephalomalacia in the right parietal lobe adjacent to the craniotomy defect, likely related to prior treatment for metastatic breast cancer. The ventricles are normal. There is no abnormal mass effect o r midline shift. The basal cisterns are patent. The orbits are normal. There is mild mucosal thickeni ng of the paranasal sinuses. IMPRESSION: 1. No acute intracranial abnormality. 2. Right parietal skull craniotomy defect with underlying encephalomalacia in the right parietal lobe , likely related to treatment for metastatic breast cancer. Reviewed, dictated and finalized at location A. IMPRESSION: 1. No acute intracranial abnormality. 2. Right parietal skull craniotomy defect with underlying encephalomalacia in t he right parietal lobe, likely related to treatment for metastatic breast sharon mobley
[2020-05-14 18:30] VITALS: BP 146/96; PULSE 88; RESP 18; TEMP 37.2; O2SAT 97
--- NOTE | 2020-05-14 21:08 | ED.SOB ---
HPI - SOB/Dyspnea General Chief Complaint: Shortness of Breath/Dyspnea Stated Complaint: n/v weakness for 2 weeks Time Seen by Provider: 05/14/20 21:08 Source: patient and family Mode of arrival: wheelchair Limitations: no limitations History of Present Illness HPI Narrative: Patient is a 54-year-old female with a history of metastatic breast cancer, currently undergoing chemotherapy treatment at [facility] who presents for evaluation of productive cough, weakness, shortness of breath. Patient states she has increased weakness, cough and shortness of breath over the past 2 weeks. She has had decreased oral intake, but denies vomiting. States she does not feel like eating. Her last chemotherapy treatment was approximately 2 weeks ago. She denies any chest pain. She denies fever. She denies any focal weakness or numbness, states this morning entire body feeling quite weak. She reports intermittent productive and dry cough. She denies rhinorrhea or sore throat. No history of DVT or PE. She is not on any anticoagulation. Pt recently with strep pharyngitis. Related Data Home Medications Medication Instructions Recorded Confirmed Asmanex Twisthaler 1 inh INHALATION BID 10/22/19 10/22/19 albuterol sulfate [ProAir HFA] 2 inh INHALATION BID 10/22/19 10/22/19 levetiracetam [Keppra] 1,000 mg PO BID 10/22/19 10/22/19 levetiracetam [Keppra] 500 mg PO BID 10/22/19 10/22/19 Allergies Allergy/AdvReac Type Severity Reaction Status Date / Time butorphanol Allergy Severe DIAPHRAMATIC Verified 05/14/20 18:40 SPASM codeine Allergy Severe ITCHING, Verified 05/14/20 18:40 NAUSEA AND VOMITING, SOB ibuprofen Allergy Severe BLOOD IN Verified 05/14/20 18:40 STOOL morphine Allergy Severe RESPIRATORY Verified 05/14/20 18:40 DISTRESS,ITCHEY meperidine Allergy Intermediate COMBATIVE Verified 05/14/20 18:40 Sulfa (Sulfonamide Allergy Mild MUSCLE PAIN Verified 05/14/20 18:40 Antibiotics) alcohol Allergy Unknown MUSCLE PAIN Verified 05/14/20 18:40 aspirin Allergy Unknown PARENTS Verified 05/14/20 18:40 TOLD NOT TO GIVE CHILD diphenhydramine AdvReac Muscle Verified 05/14/20 18:40 Spasms PAPER TAPE Allergy Severe BLISTERS--SEVERE Uncoded 05/14/20 18:40 SKIN REACTION YELLOW CHEESE, SIFUENTES,CLAMS Allergy Severe CHEESE---MUSCLE Uncoded 09/25/08 10:39 BURCIAGA NO ARTIFICIAL SWEETNERS Allergy Unknown Diarrhea Uncoded 10/22/19 13:10 Review of Systems Review of Systems: Narrative: CONSTITUTIONAL: Denies fever, chills, or sweats. ENT: Denies rhinorrhea, congestion, sore throat, or otalgia. CARDIOVASCULAR: Denies chest pain, denies edema RESPIRATORY: Reports cough and shortness of breath GASTROINTESTINAL: Reports right-sided abdominal pain and decreased oral intake GENITOURINARY: Denies dysuria or hematuria. SKIN: Denies rash or itching. MUSCULOSKELETAL: Denies back pain, joint pain, reports myalgias NEUROLOGIC: Denies headache, numbness, reports nonfocal weakness PMFSH Past Medical History Medical History Arthritis Brain tumor multiple tumors were removed. Breast cancer, left Typically she has chemotherapy for 2 weeks and then 1 week off her last chemo treatment was last Monday. She was due for chemo this week however her oncologist recommended that she hold off on chemo due to the ferro virus outbreak. 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 Speech is clear today. 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 Hypertension Kidney stones Port-A-Cath in place right upper chest Seizure disorder currently on Keppra Surgical History Surgical History H/O left mastectomy w
--- NOTE | 2020-05-14 21:20 | ECG_ITS ---
Measurements Intervals [place] Rate: 84 P: 146 NE: 139 QRS: 198 QRSD: 112 T: 162 QT: 404 QTc: 479 Interpretive Statements SINUS RHYTHM LIMB LEAD REVERSAL BASELINE WANDER- I, II, AVR, AVL, AVF, V1-V6 ATYPICAL ECG Electronically Signed On 05-15-2020 6:51:58 CDT by Corbin Mata D.O.
[2020-05-14 21:46] LABS: Alveolar/Arterial O2 Gradient 29.7 mmHg; Fractional Inspired Oxygen 21 %; HCO3 ABG 21.6 mEq/l (22.0-26.0); Oxygen Content ABG 17.1 %vol (16.0-22.0); Oxygen Saturation ABG 96.2 % (95.0-100.0); Oxyhemoglobin 94.6 % THb (90.0-100.0); PCO2 ABG 33.4 mmHg (35.0-45.0); PO2 FiO2 Ratio Arterial Blood 3.81 %; Total Hemoglobin 12.8 g/dL (12.0-18.0); pH ABG 7.429 (7.350-7.450)
[2020-05-14 21:48] LABS: Device ROOM AIR; Site Drawn RIGHT BRACHIAL
[2020-05-14 22:32] LABS: Hematocrit 35.8 % (37.0-47.0); Hemoglobin 11.7 g/dL (12.0-15.0); Mean Corpuscular HGB Conc 32.7 g/dl (32-36); Mean Corpuscular Hemoglobin 31.2 pg (26-34); Mean Corpuscular Volume 95.5 fl (80-100); Mean Platelet Volume 10.1 fl (7.4-10.4); Platelet Count Result 330 k/mm3 (150-375); Red Blood Count 3.75 M/mm3 (4.2-5.4); Red Cell Distribution Width 15.3 % (11.5-14.5); White Blood Count 8.1 K/mm3 (4.5-10.0)
[2020-05-14 22:41] LABS: INR 1.2; Prothrombin Time 14.4 Seconds (11.1-14.7)
[2020-05-14 22:42] LABS: Partial Thromboplastin Time 32.7 SECONDS (22.3-36.8)
[2020-05-14 22:43] LABS: Atypical Lymphocytes Present; Band Neutrophils Percent 5 % (0-6); Eosinophils Absolute Manual 0.08 K/mm3 (0.02-0.5); Eosinophils Percent Manual 1 % (0-4); Lymphocytes Absolute Manual 1.62 K/mm3 (1.1-4.5); Monocytes Absolute Manual 0.72 K/mm3 (0.1-0.90); Monocytes Percent Manual 9 % (3-9); Neutrophils Absolute Manual 5.67 K/mm3 (1.7-7.2); Neutrophils Percent Manual 65 % (46-73); Platelet Estimate Adequate (Adequate); Total Cells Counted 100
[2020-05-14 22:44] LABS: D Dimer 2.63 ug/mL (<0.48)
[2020-05-14 22:50] LABS: Estimated Glomerular Filt Rate 47
[2020-05-14 22:59] LABS: Alanine Aminotransferase 19 U/L (4-35); Albumin Level 3.8 g/dL (3.5-5.1); Alkaline Phosphatase 119 U/L (38-126); Anion Gap 9 mmol/L (8-16); Aspartate Amino Transferase 22 U/L (14-36); Bilirubin,Total 0.5 mg/dL (0.2-1.3); Blood Urea Nitrogen 10 mg/dL (7-17); Calcium 9.2 mg/dL (8.4-10.2); Carbon Dioxide 28 mmol/L (22-30); Chloride 106 mmol/L (98-107); Estimated Glomerular Filt Rate 47; Glucose 128 mg/dL (65-105); Potassium 3.7 mmol/L (3.4-5.0); Sodium 143 mmol/L (137-145)
[2020-05-14 23:11] LABS: Troponin I < 0.012 ng/mL (0.000-0.034)
[2020-05-14] MEDS: levETIRAcetam 500 MG TABLET 1500 MG PO (23:28)
[2020-05-14 23:34] LABS: NT Pro B Type Natriuretic Pept 92 PG/ML (5-100)
[2020-05-15] VITALS (7 sets, daily range): BP systolic 97–134; BP diastolic 54–107; PULSE 70–84; RESP 16–24; TEMP 36.4–37.3; O2SAT 96–99; BMI 39.6
[2020-05-15] MEDS: SODIUM CHLORIDE 0.9% IV 1,000 ML 999 ML IV CONT (00:24)
[2020-05-15 02:39] LABS: Add Urine Microscopic? YES; Appearance Urine Clear (Clear); Bilirubin Urine Negative (Negative); Color Urine Yellow (Yellow); Glucose Urine UA Negative (Negative); Ketones Urine Negative (Negative); Leukocyte Esterase Ur Trace LEU/UL (Negative); Mucus Urine Rare /lpf; Nitrate Urine Negative (Negative); Protein Urine 1+ mg/dL (Negative); Squamous Epithelial Cell Urine Occasional /hpf (Few); Urobilinogen Urine Negative mg/dL (<2.0); WBC Urine 21-30 /hpf
[2020-05-15 02:42] LABS: Blood Urine Negative (Negative); Specific Grav Ur > 1.060 (1.001-1.035)
--- NOTE | 2020-05-15 03:35 | ADMGEN ---
This patient, Stacy Domínguez, was admitted to [facility] Surg Room 329-01. Patient/family oriented to hospital policies and general routines including ID bracelet, bed and alarms, visiting hours, pain management, procedures, bathroom and other care routines, personal items, smoking policy, room service/diet, and visiting hours. Valuables list has been completed. Information on how to activate the Rapid Response Team has been discussed. Patient/Family are encouraged to report perceived risks to care and to ask questions if they do not understand what they are told or what they should do.
[2020-05-15] MEDS: SODIUM CHLORIDE 0.9% IV 1,000 ML 125 ML IV CONT (04:09)
--- NOTE | 2020-05-15 04:29 | PM.IMHP ---
H&P: HPI History of Present Illness Date/Time: 05/15/20 04:29 Chief complaint: URI, Dyspnea, Weakness Narrative: This is a pleasant 54 year old female with known history of metastatic breast cancer and seizure disorder who is treated at [facility] and presented to our hospital with a complaint of a productive cough, increased exertional shortness of breath, and generalized weakness over the past 1.5 weeks. Her last session of chemotherapy was about 2 weeks ago. She decided to come to our hospital as she did not want to wait a long time at [facility] ER. She denies any fevers, chills, abdominal pain, vomiting, or new focal neurological symptoms. The patient is known to chronically have LLE weakness after suffering stroke. She reports chronic chest pain from pathological sternum fractures. The patient has had nausea. She was evaluated in the ER and CT chest was obtained which demonstrated a 5.4 cm mass of the left lower lobe consistent with metastatic disease. A 1.7 cm nodule of the left lung apex is also concerning for metastatic disease. The patient was found to desaturate with any exertion. She is not normally on any oxygen at home. ER provider has consulted Oncology, Dr. Multani. We have been asked to admit the patient to the hospital to evaluate for possible home oxygen. She has been swabbed for COVID-19 in the ER tonight. No other complaints. Review of Systems Review of Systems: All systems reviewed & are unremarkable except as noted in HPI and below PMFSH Past Medical History Medical History Arthritis Brain tumor multiple tumors were removed. Breast cancer, left Typically she has chemotherapy for 2 weeks and then 1 week off her last chemo treatment was last Monday. She was due for chemo this week however her oncologist recommended that she hold off on chemo due to the ferro virus outbreak. 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 Speech is clear today. 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 Hypertension Kidney stones Port-A-Cath in place right upper chest Seizure disorder currently on Keppra Surgical History Surgical History H/O left mastectomy with breast implant that has ruptured History of section X2 History of dilation and curettage x2 History of left breast biopsy History of tonsillectomy History of uterine suspension procedure Family History Family History Mother Abdominal hemorrhage Social History Social History Smoking status: Never smoker Alcohol intake: never Substance use: current Substance use type: marijuana Last use: 10/22/2019 Gender identity (if verbalized by the patient): Female Spiritual care concerns: No Agree to blood products: Yes Meds Home Medications and Allergies Home Medications Medication Instructions Recorded Confirmed Type albuterol sulfate [ProAir HFA] 2 inh INHALATION BID PRN 10/22/19 05/15/20 History levetiracetam [Keppra] 1,000 mg PO BID 10/22/19 05/15/20 History levetiracetam [Keppra] 500 mg PO BID 10/22/19 05/15/20 History Allergies Allergy/AdvReac Type Severity Reaction Status Date / Time butorphanol Allergy Severe DIAPHRAMATIC Verified 05/14/20 18:40 SPASM codeine Allergy Severe ITCHING, Verified 05/14/20 18:40 NAUSEA AND VOMITING, SOB ibuprofen Allergy Severe BLOOD IN Verified 05/14/20 18:40 STOOL morphine Allergy Severe RESPIRATORY Verified 05/14/20 18:40 DISTRESS,ITCHEY meperidine Allergy Intermediate COMBATIVE Verified 05/14/20 18:40 Sulfa (Sulfonamide Allergy Mild MUSCLE PAIN Verified 05/14/20 18:40 An
[2020-05-15 06:56] LABS: Basophils Absolute Auto 0.1 K/mm3 (0.0-0.1); Eosinophils Absolute Auto 0.2 K/mm3 (0-0.3); Eosinophils Percent Auto 2.9 % (0-4.4); Hemoglobin 9.8 g/dL (12.0-15.0); Immature Granulocyte Absolute 0.06 K/mm3 (0.00-0.031); Lymphocytes Absolute Auto 1.23 K/mm3 (0.9-3.2); Lymphocytes Percent Auto 20.7 % (18.3-44.2); Mean Corpuscular HGB Conc 32.7 g/dl (32-36); Mean Corpuscular Hemoglobin 31.6 pg (26-34); Mean Corpuscular Volume 96.8 fl (80-100); Monocytes Absolute Auto 0.7 K/mm3 (0.1-0.6); Monocytes Percent Auto 11.9 % (2.6-8.5); Neutrophils Absolute Auto 3.7 K/mm3 (1.3-6.7); Neutrophils Percent Auto 62.5 % (45.5-73.1); Nucleated Red Blood Cells Perc 0.5 % (0.0-0.2); Platelet Count Result 272 k/mm3 (150-375); Red Cell Distribution Width 15.5 % (11.5-14.5)
[2020-05-15 07:15] LABS: Potassium 3.6 mmol/L (3.4-5.0)
[2020-05-15 07:30] LABS: Anion Gap 5 mmol/L (8-16); Blood Urea Nitrogen 9 mg/dL (7-17); Calcium 8.3 mg/dL (8.4-10.2); Carbon Dioxide 28 mmol/L (22-30); Chloride 110 mmol/L (98-107); Estimated CRCL calculation 55 ml/min; Estimated Glomerular Filt Rate 47; Glucose 115 mg/dL (65-105); Sodium 143 mmol/L (137-145)
[2020-05-15 07:56] LABS: Hypochromasia 2+ (NORMAL); Ovalocytes 1+ (NORMAL); Platelet Estimate Adequate (Adequate); Polychromasia 1+ (NORMAL); Tear Drop Cells 1+ (NORMAL)
[2020-05-15] MEDS: levETIRAcetam 500 MG TABLET 1500 MG PO (13:04)
[2020-05-15] MEDS: SODIUM CHLORIDE 0.9% IV 1,000 ML 100 ML IV CONT (13:04)
[2020-05-15] MEDS: CENTRAL LINE FLUSH 10 ML IV PUSH ×2 (13:05→21:17)
[2020-05-15 13:59] LABS: SARS-CoV-2 RNA PCR Negative
--- NOTE | 2020-05-15 14:44 | PM.IMPN ---
Progress Note: A&P Assessment and Plan (1) Exertional dyspnea: Code(s): R06.00 - Dyspnea, unspecified Status: Acute Assessment and Plan: Likely secondary to ongoing metastatic disease vs. viral URI. Home O2 evaluation shows she has no new O2 requirements. Strep throat also less likely; centor score -1. The patient has been admitted for observation. Continue bronchodilators, oxygen supplementation if needed although has not required O2 during stay Await further rec from Dr. Multani who was consulted from ED Await final BCx/UCx Monitor (2) Weakness: Code(s): R53.1 - Weakness Status: Chronic Assessment and Plan: Appears to be secondary to metastatic disease. Continue supportive treatment. PT/OT CC following (3) Metastatic cancer: Qualifiers: Area of secondary neoplastic involvement: respiratory structure Laterality: unspecified laterality Respiratory structure secondary neoplasm location: metastatic to lung Qualified Code(s): C78.00 - Secondary malignant neoplasm of unspecified lung Code(s): C79.9 - Secondary malignant neoplasm of unspecified site Status: Chronic Assessment and Plan: Oncology consulted from ED and appreciate recommendations. Will need f/u with established heme/onc (4) Seizure disorder: Code(s): G40.909 - Epilepsy, unspecified, not intractable, without status epilepticus Status: Chronic Assessment and Plan: Continue Keppra PO. (5) Stage IV breast cancer in female: Code(s): C50.919 - Malignant neoplasm of unspecified site of unspecified female breast Status: Chronic Assessment and Plan: Continue Oncology recommendations. (6) Suspected 2019 novel coronavirus infection: Code(s): Z20.828 - Contact with and (suspected) exposure to other viral communicable diseases Status: Ruled-out Assessment and Plan: COVID-19 results negative d/c droplet isolation. Continue supportive care. (7) Abnormal urinalysis: Code(s): R82.90 - Unspecified abnormal findings in urine Status: Acute Assessment and Plan: r/o UTI. UCx pending. The patient denies any urinary symptoms today, but was noting dysuria yesterday. NO antibiotics thus far as she is afebrile without leukocytosis Monitor UCx and consider abx if growth Subjective Date/time seen: 05/15/20 14:44 Interval history: Patient is a 54 yo F with known history of metastatic breast cancer and seizure disorder who is treated at [facility] who is seen in follow up for increasing CAI over the past several weeks and productive cough. Patient states she feels somewhat better today. She no long feels dehydrated. Yesterday, she noted burning with urination, but this has resolved today with fluids. She notes feeling hot then cold occasionally. Occasionally light headed when she has a coughing fit. Occasionally loses her voice. No other complaints at the moment. Overall feeling better today. Denies current subjective f/c/s, headaches, dizziness, lightheadedness, changes in v/h, palpitations, n/v/d/c, abd pain, changes in BMs, current dysuria, hematuria, cloudy urine, calf pain/swelling. Review of Systems Review of Systems: All systems reviewed & are unremarkable except as noted in HPI and below Exam Narrative: Exam Narrative: Patient resting in bed at time of visit. No acute distress. Maintenance in room attempting to catch a wasp in the room Const: General: cooperative, no acute distress, alert, awake and ill appearing chronically Nutritional Appearance: obese Orientation/consciousness: patient oriented x3 HENMT: Head: normal to inspection General nose exa
--- NOTE | 2020-05-15 16:34 | PDONCCN ---
HPI - Date of Consult Date/Time: 05/15/20 16:34 Requesting Physician: Carmelo Del Cid PA-C Primary Care Provider: Stacey Stout, - Consult Narrative Reason for consult: Metastatic breast cancer Narrative: Stacy Domínguez is a 54 year old female with history of initially diagnosed with left-sided early stage breast cancer at age of 25. She had lumpectomy and chemotherapy done at that time. Patient had a relapse of cancer involving the left breast in 2005 and had mastectomy done. Her cancer was triple negative. She received adjuvant chemotherapy and radiation therapy. Unfortunately 2012 she developed brain metastasis. Up till then she was seeing Dr. Toscano. At that point in 2012 she switch her care to [facility] and currently she is seeing Dr. Parrish. She also developed metastatic disease involving the bone and the lungs. She is receiving chemotherapy but not sure about the name of the drug. She had her last treatment was 2 weeks ago. She is due to have another treatment next week. Patient now came into the hospital with increasing tiredness and fatigue along with cough and sore throat. She was also complaining of shortness of breath but denies any fevers and chills. Her COVID-19 testing were done and came back negative. CT scan showed 5.4 cm left lower lobe of the lung mass as well as 1.7 cm nodule in the left lung apex and bone metastasis involving the sternum. Review of Systems - Review of Systems All systems reviewed & are unremarkable except as noted in HPI and [facility] Medical History: Medical History (Last Reviewed 05/15/20 @ 04:39 by Nikko Nagy MD) Arthritis Brain tumor multiple tumors were removed. Breast cancer, left Typically she has chemotherapy for 2 weeks and then 1 week off her last chemo treatment was last Monday. She was due for chemo this week however her oncologist recommended that she hold off on chemo due to the ferro virus outbreak. 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 Speech is clear today. 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 Hypertension Kidney stones Port-A-Cath in place right upper chest Seizure disorder currently on Keppra Surgical History: Surgical History (Last Reviewed 10/09/20 @ 04:39 by Nikko Nagy MD) H/O left mastectomy with breast implant that has ruptured History of section X2 History of dilation and curettage x2 History of left breast biopsy History of tonsillectomy History of uterine suspension procedure Family History: Family History (Last Reviewed 05/15/20 @ 04:39 by Nikko Nagy MD) Mother Abdominal hemorrhage - Social History Social History: Social History (Last Reviewed 05/15/20 @ 04:39 by Nikko Nagy MD) Gender Identity: Gender identity (if verbalized by the patient): Female Alcohol Use: Alcohol intake: never Substance Use: Substance use: current Substance use type: marijuana Last use: 10/22/2019 Others: Spiritual care concerns: No Agree to blood products: Yes Smoking Status: Smoking status: Never smoker Meds Home Medications Medication Instructions Recorded Confirmed Type albuterol sulfate [ProAir HFA] 2 inh INHALATION BID PRN 10/22/19 05/15/20 History levetiracetam [Keppra] 1,500 mg PO Q12H 10/22/19 05/15/20 History Allergies Allergy/AdvReac Type Severity Reaction Status Date / Time butorphanol Allergy Severe DIAPHRAMATIC Verified 05/14/20 18:40 SPASM codeine Allergy Severe ITCHING, Verified 05/14/20 18:40 NAUSEA AND VOMITING, SOB ibuprofen Allergy Severe BLOOD IN Verified 05/14/20 18:40 STOOL morphine Allergy Severe RESPIRATORY Verified 05/14/20 18:40 DISTRESS,ITCHEY meperidine Allergy
[2020-05-15] MEDS: BENZONATATE 100 MG CAPSULE PO (21:58)
[2020-05-16] MEDS: levETIRAcetam 500 MG TABLET 1500 MG PO (00:05)
[2020-05-16 05:50] LABS: Hematocrit 31.4 % (37.0-47.0); Hemoglobin 10.2 g/dL (12.0-15.0); Mean Corpuscular HGB Conc 32.5 g/dl (32-36); Mean Corpuscular Hemoglobin 31.1 pg (26-34); Mean Corpuscular Volume 95.7 fl (80-100); Mean Platelet Volume 10.1 fl (7.4-10.4); Platelet Count Result 292 k/mm3 (150-375); Red Blood Count 3.28 M/mm3 (4.2-5.4); Red Cell Distribution Width 15.4 % (11.5-14.5); White Blood Count 7.6 K/mm3 (4.5-10.0)
[2020-05-16 06:00] VITALS: BP 109/72; PULSE 79; RESP 16; TEMP 36.2; O2SAT 95
[2020-05-16] MEDS: CENTRAL LINE FLUSH 10 ML IV PUSH (06:16)
[2020-05-16 06:26] LABS: Potassium 3.5 mmol/L (3.4-5.0)
[2020-05-16 06:27] LABS: Anion Gap 5 mmol/L (8-16); Blood Urea Nitrogen 9 mg/dL (7-17); Calcium 8.8 mg/dL (8.4-10.2); Carbon Dioxide 27 mmol/L (22-30); Chloride 109 mmol/L (98-107); Estimated CRCL calculation 55 ml/min; Estimated Glomerular Filt Rate 47; Glucose 110 mg/dL (65-105); Sodium 141 mmol/L (137-145)
--- NOTE | 2020-05-16 10:08 | PM.DS ---
DS: Admitting Diagnosis Admitting Diagnosis Admitting Diagnosis: URI, Dyspnea, Weakness DS: Discharge Diagnosis Discharge Diagnosis (1) Exertional dyspnea: Code(s): R06.00 - Dyspnea, unspecified Status: Acute Assessment and Plan: Likely secondary to ongoing metastatic disease vs. viral URI. Home O2 evaluation shows she has no new O2 requirements. Strep throat also less likely; centor score -1. Will discharge home with HH today; patient already has home health F/u with PCP and Oncologist Continue supportive care at home (2) Weakness: Code(s): R53.1 - Weakness Status: Chronic Assessment and Plan: Appears to be secondary to metastatic disease. Continue supportive treatment. PT/OT during stay; continue HH at home CC following (3) Metastatic cancer: Qualifiers: Area of secondary neoplastic involvement: respiratory structure Laterality: unspecified laterality Respiratory structure secondary neoplasm location: metastatic to lung Qualified Code(s): C78.00 - Secondary malignant neoplasm of unspecified lung Code(s): C79.9 - Secondary malignant neoplasm of unspecified site Status: Chronic Assessment and Plan: Oncology consulted from ED and appreciate recommendations. Will need f/u with established heme/onc (4) Seizure disorder: Code(s): G40.909 - Epilepsy, unspecified, not intractable, without status epilepticus Status: Chronic Assessment and Plan: Continue Keppra PO. (5) Stage IV breast cancer in female: Code(s): C50.919 - Malignant neoplasm of unspecified site of unspecified female breast Status: Chronic Assessment and Plan: Continue Oncology recommendations. (6) Suspected 2019 novel coronavirus infection: Code(s): Z20.828 - Contact with and (suspected) exposure to other viral communicable diseases Status: Ruled-out Assessment and Plan: COVID-19 results negative (7) Abnormal urinalysis: Code(s): R82.90 - Unspecified abnormal findings in urine Status: Acute Assessment and Plan: UCx pending, still pending, although patient now asymptomatic. Will hold on antibiotics even if UCx return abnormal as this would be ASB . F/u with PCP if she develops symptoms again; patient comfortable with this DS: Summary Hospital Course Reason for hospitalization: Weakness, shortness of breath, URI Hospital Course: Patient is a 54 yo M with history of metastatic breast cancer and seizure disorder who is treated at [facility] and presented to our hospital on 05/14 with a complaint of a productive cough, increased exertional shortness of breath, and generalized weakness over the past 1.5 weeks. Patient was not hypoxic on RA while in the ED. CTA of c/a/p showed 5.4 cm mass of LLL consistent with metastatic disease and pathological sternum fracture due to metastatic lesion, as well as, a new adrenal mass concerning for metastatic disease; no PE noted. Given SOB and history of metastatic disease, COVID suspected and tested in the ED. Dr. Multani (Oncology) consulted from the ED for further input for metastatic breast cancer. Patient admitted under this setting. Please see H&P for further details. Presenting VS: Temp Pulse Resp BP Pulse Ox 99.0 F 88 18 146/96 H 97 RA 05/14/20 18:30 05/14/20 18:30 05/14/20 18:30 05/14/20 18:30 05/14/20 18:30 Presenting Pertinent labs: D-dimer 2.63. Troponin <0.012. UA shows yellow/clear, >1.060 specific gravity, 1+ protein, leuk est trace, 6-10 RBC, 21-30 WBC. COVID testing negative. CBC, coag, ABG, chemistry, UA otherwise unremarkable Micro: BCx shows NGTD x 2 after 2 days. UCx growing E. Coli (pa
== END 2020-05-16 12:05 | disposition home or self-care (01) ==
LOC: ANHED 23:46 → ANH3MEDSUR 05-15 01:48
PROVIDERS: Physician Assistant; Admitting Provider Family Medicine; Emergency Provider Emergency Medicine; PCP Family Medicine; Visit Provider Internal Medicine
DX: R06.02 Shortness of breath (principal); R53.1 Weakness; C50.919 Malignant neoplasm of unspecified site of unspecified female breast; C78.00 Secondary malignant neoplasm of unspecified lung; R05 Cough; G40.909 Epilepsy, unspecified, not intractable, without status epilepticus; C79.51 Secondary malignant neoplasm of bone; C79.31 Secondary malignant neoplasm of brain; I10 Essential (primary) hypertension; Z95.828 Presence of other vascular implants and grafts; Z79.899 Other long term (current) drug therapy; Z87.891 Personal history of nicotine dependence; Z20.828 Contact with and (suspected) exposure to other viral communicable diseases; E27.9 Disorder of adrenal gland, unspecified; R94.31 Abnormal electrocardiogram [ECG] [EKG]; F12.90 Cannabis use, unspecified, uncomplicated; R82.90 Unspecified abnormal findings in urine; D64.81 Anemia due to antineoplastic chemotherapy; Z86.73 Personal history of transient ischemic attack (TIA), and cerebral infarction without residual deficits
CPT/HCPCS: 36415; 36600; 70450; 71045; 71275; 74177; 80048; 80053; 81001; 82805; 83735; 83880; 84484; 85025; 85027; 85380; 85610; 85730; 87040; 87077; 87086; 87088; 87186; 87635; 93005; 96360; 96361; 97161; 97166; 99285; A9270; C9803; G0378; G0379; J1642; J7030; Q9967; U0003